=== PATIENT | female | born 1980 | race Caucasian/White ===

== ENCOUNTER → 2020-02-26 | Outpatient (CLI) | payer OTHER ==
--- NOTE | 2020-02-26 16:37 | BD ---
EXAMINATION TYPE: Axial Bone Density DATE OF EXAM: 02/26/2020 COMPARISON: NONE CLINICAL HISTORY: 39 YR OLD FEMALE.....ICD-10 CODE: Z78.9 PROLONGED USE OF DEPO Height: 66.8 Weight: 160 FRAX RISK QUESTIONS: NOTHING TO NOTE HERE RISK FACTORS HISTORY OF: Active: YES Diet low in dairy products/other sources of calcium: YES A BIT Postmenopausal woman: NA Take estrogen and/or progesterone medications: DEPO SHOTS FOR 11 YRS NOW Hyperparathyroidism: NO Adrenal Insufficiency: NO MEDICATIONS: Additional Medications: DEPO FOR 11 YRS, Additional History:THYROID NODULES, BXs EXAM MEASUREMENTS: Bone mineral densitometry was performed using the [employer] System. Bone mineral density as measured about the Lumbar spine is: ----- L1-L4(G/cm2): 1.137 T Score Values are as follows: ----- L1: -0.3 ----- L2: -0.3 ----- L3: -0.3 ----- L4: -0.6 ----- L1-L4: -0.4 Bone mineral density FIRST BONE DENSITY .......BASELINE STUDY Bone mineral density about the R hip (g/cm2): 1.114 Bone mineral density about the L hip (g/cm2): 1.051 T Score values are as follows: -----R Neck: 0.5 -----L Neck: -0.1 -----R Total: 0.8 -----L Total: 0.3 Bone mineral density BASELINE STUDY FRAX%s: THERE IS NO FRAX...BASED ON PATIENTS AGE .....OUT OF RANGE IMPRESSION: Normal (Values between +1 and -1 indicate normal bone mass). Consider repeating this study in 5 year s or sooner if there is some new clinical indication. NOTE: T-SCORE=SD OF THE YOUNG ADULT MEAN.
== END | disposition home or self-care (01) ==
LOC: RADBDWWP 13:21
PROVIDERS: ATTEND Obstetrics & Gynecology
DX: Z78.9 Other specified health status (principal)
CPT/HCPCS: 77080

== ENCOUNTER → 2020-03-05 | Outpatient (CLI) | payer OTHER ==
[2020-03-05 09:50] LABS: Basophils % (A) 0 %; Eosinophils # (A) 0.2 k/uL (0-0.7); Eosinophils % (A) 3 %; HCT 39.5 % (34.0-46.0); HGB 12.7 gm/dL (11.4-16.0); Lymphocytes # (A) 1.1 k/uL (1.0-4.8); Lymphocytes % (A) 19 %; MCH 30.5 pg (25.0-35.0); MCHC 32.3 g/dL (31.0-37.0); MCV 94.5 fL (80.0-100.0); Mean Platelet Volume 7.7; Monocytes # (A) 0.4 k/uL (0-1.0); Monocytes % (A) 6 %; Neutrophils # (A) 4.3 k/uL (1.3-7.7); Neutrophils % (A) 70 %; Platelet Count 243 k/uL (150-450); RBC 4.18 m/uL (3.80-5.40); RDW 12.6 % (11.5-15.5); WBC 6.1 k/uL (3.8-10.6)
== END | disposition home or self-care (01) ==
LOC: LABPAT 09:15
PROVIDERS: ATTEND Obstetrics & Gynecology
DX: Z01.818 Encounter for other preprocedural examination (principal)
CPT/HCPCS: 36415; 85025

== ENCOUNTER 2020-03-11 06:11 | Day surgery (SDC) | payer OTHER ==
[2020-03-04 15:41] VITALS: BMI 24.3
--- NOTE | 2020-03-10 16:44 | P.HPOB ---
History of Present Illness H&P Date: 03/10/20 Chief Complaint: Family planning Giovanna is a 39-year-old female who has completed her family planning and desires permanent sterilization. Risks/benefits/alternatives to laparoscopic tubal occlusion with Filshie clips were reviewed with the patient in detail and all questions were answered for her heart to proceeding to the operative room. Risks did include but were not limited to bleeding and infection, damage to bladder or bowel, vascular degrees, nerve injuries, possible need further surgeries. She is aware this is a permanent procedure and not designed to be reversed. She is also aware that there is a failure rate of approximately 4 per thousand. All questions are answered and she is stable prior to going to surgery. Past Medical History Past Medical History: No Reported History History of Any Multi-Drug Resistant Organisms: None Reported Additional Past Surgical History / Comment(s): THYROID BX Past Anesthesia/Blood Transfusion Reactions: No Reported Reaction Smoking Status: Former smoker - Past Family History Mother Family Medical History: No Reported History Medications and Allergies Home Medications Medication Instructions Recorded Confirmed Type Medroxyprogesterone Acetate 150 mg IM ONCE 03/04/20 03/04/20 History [Depo-Provera] Allergies Allergy/AdvReac Type Severity Reaction Status Date / Time No Known Allergies Allergy Verified 03/04/20 15:37 Exam Osteopathic Statement: *. No significant issues noted on an osteopathic structural exam other than those noted in the History and Physical/Consult. - OBG Physical Exam Breast: both: normal (no masses) Abdomen: bowel sounds normal, no diffuse tenderness, no bruit present, no guarding noted, no hepatomegaly, no splenomegaly, no mass Vulva: both: normal Vagina: normal moisture, no discharge Cervix: no lesion, no discharge Uterus: normal size, normal contour Adnexa: both: normal Anus/Rectum: normal perianal skin, no rectal mass, no hemorrhoids, heme negative
[~2020-03-11 06:11] MED LIST: DEXAMETHASONE SOD PHOSPHATE 4 MG/ML 1 ML VIAL IV ONE; LACTATED RINGERS 1,000 ML IV SCH; LIDOCAINE 1% (10MG/ML) FOR IV START INTRADERMA PRN; MIDAZOLAM 2 MG/2 ML VIAL IV PRN; ONDANSETRON 4 MG/2 ML VIAL IVP ONE; Pre Op ABX Message 1 EACH MISC MISCELLANE ONE
[2020-03-11] MEDS ORDERED: KETOROLAC 15 MG/ML 1 ML VIAL ONE (07:28)
[2020-03-11] MEDS ORDERED: LIDOCAINE 1% INJ 10MG/ML (20 ML MDV) ONE (07:28)
[2020-03-11] MEDS ORDERED: GLYCOPYRROLATE 0.2 MG/ML 2 ML VIAL ONE (07:28)
[2020-03-11] MEDS ORDERED: MIDAZOLAM 2 MG/2 ML VIAL ONE (07:28)
[2020-03-11] MEDS ORDERED: ROCURONIUM 10 MG/ML (10 ML VIAL) IV ONE (07:28)
[2020-03-11] MEDS ORDERED: fentaNYL (PF) 50 MCG/ML 2 ML AMP ONE (07:28)
[2020-03-11] MEDS ORDERED: NEOSTIGMINE 1 MG/ML 10 ML VIAL ONE (07:28)
[2020-03-11] MEDS ORDERED: PROPOFOL 10 MG/ML 20 ML VIAL IV ONE (07:28)
[2020-03-11] MEDS ORDERED: BUPIVACAINE (PF) 0.25% 30 ML VIAL SQ ONE ×2 (07:51→07:56)
[2020-03-11] MEDS ORDERED: LACTATED RINGERS 1,000 ML IV ONE (08:02)
--- NOTE | 2020-03-11 08:05 | P.OP ---
Date of Procedure: 03/11/20 Preoperative Diagnosis: Family planning Postoperative Diagnosis: Same Procedure(s) Performed: Laparoscopic tubal occlusion with Filshie clips Anesthesia: NORMAN Surgeon: Benito Russell Estimated Blood Loss (ml): 3 Urine output (ml): 100 Pathology: none sent Condition: stable Disposition: same day Operative Findings: 1 incidental endometriosis implant noted anterior pelvic wall near bladder. Left alone Description of Procedure: Patient was taken to the operative suite where a general anesthetic was found be adequate. She was prepped and draped in the normal sterile fashion and placed in the dorsal lithotomy position. Initially a speculum was inserted into the vagina and the anterior lip of the cervix identified and grasped with Allis clamp and uterus sounded to 9 cm. Uterine manipulator was then inserted without difficulty incidents removed and red rubber catheter was used to drain the bladder of urine. At this point I changed gloves and attention was turned to abdominal portion procedure. 2 mL of quarter percent Marcaine was then injected periumbilically and through this injected anesthetic a 5 mm skin incision was made. Through this incision, a 5 mm trocar and sleeve were inserted under direct visualization with an optical trocar. Once peritoneal placement was assured gas was allowed to fully insufflate the abdomen and patient's placement steep Trendelenburg position. A second port and sleeve were then inserted 2 cm above the pubic symphysis in the midline through direct visualization again. Once this was completed observations pelvis were noted. First the right fallopian tube than the left fallopian tube had a Filshie clip applied 2 cm from uterine cornu. No bleeding is noted in the mesosalpinx therefore all instruments removed and gas was left expel from the abdomen. 5 deep breaths were provided during this process. 4-0 Vicryl was then used to close incision subcuticularly and another 8 mL of quarter percent Marcaine was injected around these incisions. Incidents were then removed from vagina. Sponge, lap, needle counts were all correct 2. Patient was then taken to the recovery room in stable and satisfactory condition. Plan - Discharge Summary Discharge Rx Participant: Yes New Discharge Prescriptions: New Ibuprofen [Motrin] 600 mg PO Q6HR PRN #20 tab PRN Reason: Pain HYDROcodone/APAP 5-325MG [[place] 5-325] 1 tab PO Q4HR PRN #30 tab PRN Reason: Pain No Action Medroxyprogesterone Acetate [Depo-Provera] 150 mg IM ONCE Discharge Medication List Medroxyprogesterone Acetate [Depo-Provera] 150 mg IM ONCE 03/04/20 [History] HYDROcodone/APAP 5-325MG [[place] 5-325] 1 tab PO Q4HR PRN #30 tab 03/11/20 [Rx] Ibuprofen [Motrin] 600 mg PO Q6HR PRN #20 tab 03/11/20 [Rx] Follow up Appointment(s)/Referral(s): Benito Russell DO [Doctor of Osteopathic Medicine] - 1 Week Activity/Diet/Wound Care/Special Instructions: No heavy lifting, limit stairs and driving, and pelvic rest. If any high temperatures, heavy bleeding, or severe pain call my office Discharge Disposition: HOME SELF-CARE
[2020-03-11] MEDS: HYDROmorphone 0.5 MG/0.5 ML SYRINGE IVP PRN ×3 (08:15→08:40)
[2020-03-11 08:34] VITALS: TEMP 97.2
[2020-03-11] MEDS ORDERED: ONDANSETRON 4 MG/2 ML VIAL ONE (09:39)
[2020-03-11] MEDS ORDERED: ONDANSETRON 4 MG/2 ML VIAL IVP ONE (09:42)
[2020-03-11] MEDS ORDERED: SCOPOLAMINE 1.5MG/72HR PATCH TRANSDERM ONE (10:30)
[2020-03-11 11:23] VITALS: BP 117/78; PULSE 68; RESP 14
== END 2020-03-11 11:23 | disposition home or self-care (01) ==
LOC: OR 06:11
PROVIDERS: ATTEND Obstetrics & Gynecology
DX: Z30.2 Encounter for sterilization (principal); N80.3 Endometriosis of pelvic peritoneum; Z98.890 Other specified postprocedural states; Z87.891 Personal history of nicotine dependence; Z79.3 Long term (current) use of hormonal contraceptives
CPT/HCPCS: 81025; 58671; J2250; J1100; J2710; J2405; J2001; J3010; J1885; J2704; J1170

== ENCOUNTER → 2020-04-17 | Outpatient (CLI) | payer OTHER ==
--- NOTE | 2020-04-17 13:39 | MM ---
Reason for exam: screening (asymptomatic). Baseline mammogram. History: Taking hormonal contraceptives beginning at age 17. Physical Findings: Nurse did not find any significant physical abnormalities on exam. MG Screening Mammo w CAD Bilateral CC and MLO view(s) were taken. The breast tissue is heterogeneously dense. This may lower the sensitivity of mammography. There is no discrete abnormality. These results were verbally communicated with the patient and result sheet given to the patient on 04/17/20. ASSESSMENT: Negative, BI-RAD 1 RECOMMENDATION: Routine screening mammogram of both breasts in 1 year.
== END | disposition home or self-care (01) ==
LOC: RADMAMWWP 10:18
PROVIDERS: ATTEND Obstetrics & Gynecology
DX: Z12.31 Encounter for screening mammogram for malignant neoplasm of breast (principal)
CPT/HCPCS: 77067

== ENCOUNTER → 2022-03-23 | Outpatient (CLI) | payer OTHER ==
--- NOTE | 2022-03-24 13:01 | CT ---
EXAMINATION TYPE: CT sinus wo con CT DLP: 429.4 mGycm, Automated exposure control for dose reduction was used. DATE OF EXAM: 03/23/2022 5:34 PM COMPARISON: None. CLINICAL INDICATION:Female, 41 years old with history of J32.9 CHRONIC SINUSITIS, chronic sinus conge stion TECHNIQUE: Multiple thin axial images were obtained through the paranasal sinuses without the use of IV contrast. Additional coronal and sagittal reformatted images were submitted for evaluation. Contrast used: none Oral contrast used: none FINDINGS: Frontal sinuses: Normally developed and aerated. Frontal Recess: Clear Modified Allenwood-Sheryl Score: Right 0 = 0% Opacified, Left 1 = 1-25% Opacified Maxillary Sinuses: Normally developed and aerated. Modified Adonis-Huron Score: Right 1 = 1-25% Opacified, Left 1 = 1-25% Opacified Maxillary Infundibula(OMC): Clear, No Ann Marie cells identified. Modified Allenwood-Sheryl Score: Right 0 = Completely patent, Left 0 = Completely patent Ethmoid sinuses: Normally developed and aerated. Right frontal sclerotic presumably osteoma measuring 8 mm. Ethmoidal notch: Protected and abutting the lateral lamina. Modified Allenwood-Huron Score: Anterior Right 0 = 0% Opacified, Left 0 = 0% Opacified Posterior Right 0 = 0% Opacified, Left 0 = 0% Opacified Sphenoid sinuses: Normally developed and aerated. There is sellar sphenoid sinus pneumatization witho ut evidence of dehiscence. No dehiscence of carotid canal. No evidence of optic nerve dehiscence wit hin the sphenoid sinus. No evidence of Onodi cells. Sphenoethmoidal recesses: Clear. Modified Allenwood-Huron Score: Right 1 = 1-25% Opacified, Left 1 = 1-25% Opacified. Nasal septum: Within normal limits.. Nasal Turbinates: Within normal limits. Mastoid air cells & middle ears: The air cells are clear. The middle ears are grossly unremarkable. Modified Soft tissues & Brain: Partially seen without gross abnormality. Globes are intact. Other: Cribriform plate demonstrates symmetric Keros classification type 2 cribriform plate. No evidence of bony dehiscence of skull base. Lamina papyracea is intact without evidence of remote orbital fracture or orbital prolapse into the e thmoid sinus. IMPRESSION: 1. No significant mucosal sinus disease. 2. The ostiomeatal units, frontonasal and sphenoethmoidal recesses are clear. 3. Opacification burden of 3/54 on the Modified Adonis-Huron scoring system.
== END | disposition home or self-care (01) ==
LOC: RADCTMAIN 17:19
PROVIDERS: ATTEND Otolaryngology
DX: J32.9 Chronic sinusitis, unspecified (principal); J34.89 Other specified disorders of nose and nasal sinuses
CPT/HCPCS: 70486

== ENCOUNTER → 2022-06-16 | Outpatient (CLI) | payer OTHER ==
--- NOTE | 2022-06-17 08:30 | MM ---
Reason for Exam: Screening (asymptomatic). Last mammogram was performed 2 year(s) and 2 month(s) ago. Patient History: Menarche at age 17. First Full-Term at age 29. Premenopausal. Patient has history of breast feeding. Currently using Hormonal Contraceptives, starting at age 17. Maternal grandmother had ovarian cancer under age 50. Last menstrual period: 06/07/2022 Risk Values: Kay 5 year model risk: 0.6%. NCI Lifetime model risk: 10.2%. Prior Study Comparison: 04/17/2020 Bilateral Screening Mammogram, [facility]. Tissue Density: The breast tissue is heterogeneously dense. This may lower the sensitivity of mammography. Findings: Analyzed By CAD. There is no suspicious group of microcalcifications or new suspicious mass in either breast. Overall Assessment: Negative, BI-RAD 1 Management: Screening Mammogram of both breasts in 1 year. A clinical breast exam by your physician is recommended on an annual basis and results should be correlated with mammographic findings. Electronically signed and approved by: Latrell Gupta D.O.
== END | disposition home or self-care (01) ==
LOC: RADMAMWWP 07:26
PROVIDERS: ATTEND Family Medicine
DX: Z12.31 Encounter for screening mammogram for malignant neoplasm of breast (principal)
CPT/HCPCS: 77067

== ENCOUNTER → 2023-05-20 | Outpatient (CLI) | payer OTHER ==
--- NOTE | 2023-05-23 07:12 | US ---
EXAMINATION TYPE: US pelvis complete transvag DATE OF EXAM: 05/20/2023 COMPARISON: NONE CLINICAL INDICATION: Female, 42 years old with history of N92.1 EXCESS MENSTRUATION; Heavy, abnormal period. Pain since April 08, 2023. Hx tubal ligation. . TECHNIQUE: Transvaginal (TV) and Transabdominal (TA) . Transabdominal sonographic images of the pel vis were acquired. Transvaginal sonographic images were medically necessary to better assess the fol lowing anatomy: Right ovary, endometrium. Date of LMP: Unknown EXAM MEASUREMENTS: Uterus: 9.6 x 4.6 x 4.0 cm Endometrial Stripe: 0.65 cm Right Ovary: Not seen Left Ovary: 5.9 x 2.5 x 2.7 cm. 1. Uterus: Anteverted Heterogeneous. *Subcentimeter complex areas in cervix. 2. Endometrium: 0.65 cm 3. Right Ovary: Not seen 4. Left Ovary: Appears enlarged according to TA volume 28 ml, however TV volume was 20.6 ml- upper l imits, multiple anechoic areas seen, largest measures: 4.0 x 2.4 x 2.1 cm. This appears to be a simpl e cyst Arterial and venous waveforms seen within ovary. 5. Bilateral Adnexa: Appear wnl 6. Posterior cul-de-sac: Fluid was seen IMPRESSION: 1. Appear to be several cysts on the left ovary. 2. Small complex cysts within the cervix may be a complex nabothian cyst.
--- NOTE | 2023-05-23 07:35 | US ---
EXAMINATION TYPE: US thyroid st tissue head/neck DATE OF EXAM: 05/20/2023 COMPARISON: NONE CLINICAL INDICATION: Female, 42 years old with history of E04.1 THYROID NODULE; Nodule GLAND SIZE: Right Lobe: 5.8 x 2.2 x 2.1 cm, limited Overall Parenchyma: heterogeneous Left Lobe: 5.8 x 2.0 x 1.5 cm, limited Overall Parenchyma: heterogeneous Isthmus Thickness: 0.37 cm NODULES RIGHT: # of nodules measured on right: 2 1. 1.7 X 1.3 x 1.4 cm, mid mid, mixed cystic and solid, hypoechoic nodule, which is wider than tall , with smooth margins, without echogenic foci. TR 3 Prior size: no prior 2. 1.0 X 0.8 x 0.5 cm, mid lateral, solid or almost completely solid, hypoechoic nodule, which is w ider than tall, with smooth margins, without echogenic foci. Prior size: no prior LEFT: # of nodules measured on left: 2 - *Additional subcentimeter nodule seen, not fully measured. 1. 1.8 X 1.1 x 1.1 cm, lower mid, mixed cystic and solid, hypoechoic nodule, which is as wide as it is tall, with smooth margins, without echogenic foci. Prior size: no prior 2. 0.8 X 0.7 x 0.7 cm, upper mid, solid or almost completely solid, hypoechoic nodule, which is as wide as it is tall, with smooth margins, without echogenic foci. Prior size: no prior ISTHMUS: # of nodules measured in the isthmus: 0 Bilateral neck scanned, no evidence of lymphadenopathy. IMPRESSION: 1. Mildly suspicious nodule right lobe thyroid. Follow-up exam in one year is recommended. 2017 ACR TI-RADS LEVEL: *Highest TI-RADS level nodule reported
== END | disposition home or self-care (01) ==
LOC: RADUSWWP 15:51
PROVIDERS: ATTEND Family Medicine
DX: N83.202 Unspecified ovarian cyst, left side (principal); N92.1 Excessive and frequent menstruation with irregular cycle; E04.1 Nontoxic single thyroid nodule; N88.8 Other specified noninflammatory disorders of cervix uteri
CPT/HCPCS: 76536; 76830; 76856

== ENCOUNTER → 2023-09-19 | Outpatient (CLI) | payer OTHER ==
--- NOTE | 2023-09-19 15:24 | US ---
EXAMINATION TYPE: US pelvic complete DATE OF EXAM: 09/19/2023 COMPARISON: NONE CLINICAL INDICATION: Female, 43 years old with history of N83.209 UNSPECIFIED OVARIAN CYST, UNSPEC SI DE; bilat pelvic pain, heavy irregular menses TECHNIQUE: Transabdominal (TA). Transabdominal sonographic images of the pelvis were acquired. Date of LMP: unknow, some time in June EXAM MEASUREMENTS: Uterus: 8.4x4.2x6.9 cm Endometrial Stripe: 1.1 cm Right Ovary: 4.7x3.9x2.3 cm Left Ovary: 4.8x2.8x2.1 cm 1. Uterus: Anteverted wnl 2. Endometrium: wnl 3. Right Ovary: 3.1x3.1x3.1cm cystic area noted 4. Left Ovary: wnl 5. Bilateral Adnexa: Obscured by overlying bowel gas 6. Posterior cul-de-sac: wnl Unremarkable anteverted uterus. Endometrium is within normal limits. Left ovary is unremarkable with follicles demonstrated. Resolution of previously demonstrated demonstrated cysts. Right ovarian thin- walled 3.1 cm cyst. No free fluid. IMPRESSION: 1. No ultrasound evidence for acute process. 2. Resolution of previously demonstrated left ovarian cysts. 3. Development of right ovarian simple 3.1 cm cyst.
== END | disposition home or self-care (01) ==
LOC: RADUSWWP 14:00
PROVIDERS: ATTEND Family Medicine
DX: N83.202 Unspecified ovarian cyst, left side (principal)
CPT/HCPCS: 76856

== ENCOUNTER → 2024-09-26 | Outpatient (CLI) | payer OTHER ==
--- NOTE | 2024-09-26 11:28 | US ---
EXAMINATION TYPE: US thyroid st tissue head/neck DATE OF EXAM: 09/26/2024 COMPARISON: Thyroid ultrasound 05/20/2023 CLINICAL INDICATION: Female, 44 years old with history of E04.9 SINGLE NONTOXIC GOITER; Follow up no dules TECHNIQUE: Grayscale and color Doppler imaging of the thyroid gland. FINDINGS: GLAND SIZE: Right Lobe: 5.4 x 1.9 x 2.1 cm Overall Parenchyma: heterogeneous Left Lobe: 5.6 x 1.8 x 1.9 cm Overall Parenchyma: heterogeneous Isthmus Thickness: 0.4 cm NODULES RIGHT: # of nodules measured on right: 2 1. 1.2 X 1.0 x 1.1 cm, mid , mixed cystic and solid, hypoechoic nodule, which is wider than tall, w ith smooth margins, without echogenic foci. TR 3. Prior size: 1.7 x 1.3 x 1.4 cm 2. 0.9 X 0.6 x 0.8 cm, mid lateral, solid or almost completely solid, hypoechoic nodule, which is w ider than tall, with smooth margins, without echogenic foci. TR 4. Prior size: 1.0 x 0.8 x 0.5 cm LEFT: # of nodules measured on left: 3 - additional subcentimeter nodules visualized 1. 1.3 X 0.9 x 1.1 cm, lower , mixed cystic and solid, hypoechoic nodule, which is wider than tall, with smooth margins, without echogenic foci. TR 3. Prior size: 1.8 x 1.1 x 1.1 cm 2. 0.7 X 0.6 x 0.7 cm, upper , solid or almost completely solid, hypoechoic nodule, which is wider than tall, with smooth margins, without echogenic foci. TR 4. Prior size: 0.8 x 0.7 x 0.7 cm ISTHMUS: # of nodules measured in the isthmus: 0 Bilateral neck scanned, no evidence of lymphadenopathy. IMPRESSION: Multinodular thyroid gland redemonstrated with marginal decrease in size of previously seen thyroid n odules. No new or enlarging pulmonary nodules. Highest TI-RADS level nodule reported: ACR TI-RADS LEVEL: TI-RADS 4- Follow if > 1 cm, FNA if > 1.5 cm TI-RADS assessment score and recommendation for follow-up based on appropriate scoring and treatment protocols. TR1 Benign No FNA TR2 Not suspicious No FNA TR3: If nodule size is ? 2.5 cm, FNA is recommended. If nodule size is ? 1.5 cm, follow-up imaging at 1, 3, and 5 years is recommended. TR4: If nodule size is ? 1.5 cm, FNA is recommended. If nodule size is ? 1.0 cm, follow-up imaging at 1, 2, 3, and 5 years is recommended. TR5: If nodule size is ? 1.0 cm, FNA is recommended. If nodule size is ? 0.5 cm, annual follow-up for up to 5 years is recommended. TR 1 thyroid nodules have a 0.3 % risk of malignancy. TR 2 thyroid nodules have a 1.5 % risk of malignancy. TR 3 thyroid nodules have a 4.8 % risk of malignancy. TR 4 thyroid nodules have a 9.1 % risk of malignancy. TR 5 thyroid nodules have a 35 % risk of malignancy. [facility], , 09/26/2024 11:25 AM
--- NOTE | 2024-09-26 16:11 | MM ---
Reason for Exam: Screening (asymptomatic). Last mammogram was performed 2 year(s) and 3 month(s) ago. Patient History: Menarche at age 17. First Full-Term at age 29. Premenopausal. Patient has history of breast feeding. Hormonal Contraceptives, starting at age 17 for 13 years. Maternal grandmother had ovarian cancer under age 50. Last menstrual period: Risk Values: Kay 5 year model risk: 0.7%. NCI Lifetime model risk: 10.0%. Prior Study Comparison: 04/17/2020 Bilateral Screening Mammogram, [facility]. 06/16/2022 Bilateral MG screening mammo w CAD, [facility]. Tissue Density: The breasts are heterogeneously dense, which may obscure small masses. Findings: Analyzed By CAD. Unchanged bilateral areas of asymmetric density. There is no suspicious group of microcalcifications or new suspicious mass in either breast. Overall Assessment: Benign, BI-RAD 2 Management: Screening Mammogram of both breasts in 1 year. Patient should continue monthly self-breast exams. A clinical breast exam by your physician is recommended on an annual basis. This exam should not preclude additional follow-up of suspicious palpable abnormalities. Note on Kay scores and lifetime risk: 1. A Kay score greater than 3% is considered moderate risk. If this is the case, consider specialist referral to assess eligibility for a risk reducing agent. 2. If overall lifetime risk for the development of breast cancer is 20% or higher, the patient may qualify for future screening with alternating mammogram and breast MRI. [facility], , 09/26/2024 4:08 PM. Electronically signed and approved by: Jennie Moulton M.D. Radiologist
== END | disposition home or self-care (01) ==
LOC: RADMAMWWP 09:24
PROVIDERS: ATTEND Family Medicine
DX: Z12.31 Encounter for screening mammogram for malignant neoplasm of breast (principal); R92.333 Mammographic heterogeneous density, bilateral breasts; E04.1 Nontoxic single thyroid nodule; E04.2 Nontoxic multinodular goiter; Z92.0 Personal history of contraception
CPT/HCPCS: 76536; 77063; 77067